=== PATIENT | female | born 1950 | race Caucasian/White ===

== ENCOUNTER 2018-02-25 11:36 | Outpatient (CLI) | payer MEDICARE, OTHER ==
--- NOTE | 2018-02-25 14:06 | ULT ---
BILATERAL LOWER EXTREMITY VENOUS DOPPLER: Date: 02/25/18 HISTORY: Pain, edema. TECHNIQUE: Real-time Santana scale and color Doppler with spectral analysis of the bilateral lower extremity venous system was performed with the linear transducer. Bilateral common femoral, femoral, proximal portion s of greater saphenous and deep femoral veins, as well as the popliteal and posterior tibial veins we re interrogated. FINDINGS: Normal flow, augmentation, and compression. IMPRESSION: No deep venous thrombosis. POS: [facility]
--- NOTE | 2018-03-10 22:08 | ULT ---
LOWER EXTREMITY ARTERIAL EVALUATION USING DOPPLER WAVE-FORM ANALYSIS AND SEGMENTAL LIMB PRESSURES: This patient study demonstrates normal waveforms in both lower extremities with an ankle-arm index of about 1.2 bilaterally and normal toe-brachial index. This will be considered a normal resting arterial study and would be inconsistent with ischemic rest pain.
== END 2018-02-25 11:37 | disposition home or self-care (01) ==
LOC: ULT 11:36
PROVIDERS: ATTEND Nurse Practitioner Family
DX: M79.604 Pain in right leg (principal); M25.471 Effusion, right ankle; G25.81 Restless legs syndrome; R53.83 Other fatigue; I10 Essential (primary) hypertension
CPT/HCPCS: 93922; 93970

== ENCOUNTER 2018-03-05 08:50 | Outpatient (CLI) | payer MEDICARE, OTHER | END 2018-03-05 08:51 | disposition home or self-care (01) | LOC: BICULT 08:50 | PROVIDERS: ATTEND Nurse Practitioner Family | DX: R74.8 Abnormal levels of other serum enzymes (principal); R53.83 Other fatigue; R16.0 Hepatomegaly, not elsewhere classified; Z90.49 Acquired absence of other specified parts of digestive tract | CPT/HCPCS: 76705 ==

== ENCOUNTER 2018-07-13 08:25 | Day surgery (SDC) | payer MEDICARE, OTHER ==
[2018-07-08 10:39] VITALS: BMI 41.5
[2018-07-13] MEDS ORDERED: Iopamidol 370 76% 50 ML VIAL FS ONE (09:00)
[2018-07-13] MEDS ORDERED: Iopamidol 370 76% 100 ML VIAL ONE (09:00)
[2018-07-13] MEDS ORDERED: Nitroglycerin 100MG/250ML BOT 250 ML ONE (10:10)
[2018-07-13] MEDS ORDERED: Heparin 10,000 UNITS/1 ML VIAL ONE (10:11)
[2018-07-13] MEDS ORDERED: Verapamil 5 MG/2 ML VIAL ONE (12:47)
[2018-07-13] MEDS ORDERED: Midazolam HCl 2 mg/2 ml Vial ONE (12:47)
--- NOTE | 2018-07-13 17:57 | EKG ---
Test Reason : POST STENT Blood Pressure : / mmHG Vent. Rate : 054 BPM Atrial Rate : 054 BPM P-R Int : 164 ms QRS Dur : 096 ms QT Int : 422 ms P-R-T Axes : 067 021 058 degrees QTc Int : 400 ms Sinus bradycardia Nonspecific T wave abnormality Abnormal ECG No previous ECGs available Confirmed by TAYLOR CHACON ([id number]) on 07/13/2018 5:57:03 PM Referred By: MARYJANE Confirmed By:TAYLOR CHACON
== END 2018-07-13 19:50 | disposition home or self-care (01) ==
LOC: CCL 08:25
PROVIDERS: ATTEND Internal Medicine Cardiovascular Disease
PROC: 027034Z Dilation of Coronary Artery, One Artery with Drug-eluting Intraluminal Device, Percutaneous Approach (ICD-10-PCS; principal; 2018-07-13)
PROC: 4A023N7 Measurement of Cardiac Sampling and Pressure, Left Heart, Percutaneous Approach (ICD-10-PCS; 2018-07-13)
PROC: B2111ZZ Fluoroscopy of Multiple Coronary Arteries using Low Osmolar Contrast (ICD-10-PCS; 2018-07-13)
DX: I25.10 Atherosclerotic heart disease of native coronary artery without angina pectoris (principal); E78.00 Pure hypercholesterolemia, unspecified; I10 Essential (primary) hypertension; Z79.899 Other long term (current) drug therapy
CPT/HCPCS: 85347; 92928; 93005; 93454; 99152; 99153; C1769; C1874; C1887; C9600; J1644; J2250

== ENCOUNTER 2018-08-03 11:09 | Outpatient (CLI) | payer MEDICARE, OTHER ==
--- NOTE | 2018-08-03 13:58 | ULT ---
THYROID ULTRASOUND: Date: 08-03-18 Comparison: None. History: 68-year-old female with hypothyroidism and obesity. Technique: Multiplanar grayscale sonographic imaging of the thyroid gland obtained. FINDINGS: Thyroid isthmus is enlarged measuring 1.3 cm in AP dimension. Right lobe measures 5.0 x 2.5 x 2.1 cm and the left lobe measures 4.5 x 1.4 x 2.1 cm. The thyroid parenchymal diffusely is markedly heterogeneous and lobulated and essentially replaced wi th numerous nodules. No discrete/dominant nodule is identified on either side. IMPRESSION: Diffusely enlarged heterogeneous and markedly nodular thyroid gland. No discrete/dominant thyroid nod ule is appreciated. POS: [facility]
== END 2018-08-03 11:10 | disposition home or self-care (01) ==
LOC: BICULT 11:09
PROVIDERS: ATTEND Nurse Practitioner Family
DX: E03.9 Hypothyroidism, unspecified (principal); E04.9 Nontoxic goiter, unspecified
CPT/HCPCS: 76536

== ENCOUNTER 2018-08-26 08:19 | Outpatient (CLI) | payer MEDICARE, OTHER ==
--- NOTE | 2018-08-26 09:25 | BD ---
BONE DENSITOMETRY USING DEXA: Date: 08/26/18 HISTORY: Postmenopausal screening for osteoporosis. FINDINGS: Lumbar Spine: BMD (g/cm2) L1 0.960 T-Score: -0.3 Z-Score: 1.4 L2 0.963 T-Score: -0.6 Z-Score: 1.2 L3 0.797 T-Score: -2.6 Z-Score: -0.7 L4 0.849 T-Score: -1.9 Z-Score: 0.1 L1-L4 0.888 T-Score: -1.4 Z-Score: 0.4 Femoral Neck: 0.557 T-Score: -2.6 Z-Score: -1.0 Total Femur: 0.819 T-Score: -1.0 Z-Score: 0.3 IMPRESSION: Osteoporosis. POS: [facility]
== END 2018-08-26 08:20 | disposition home or self-care (01) ==
LOC: BICMAMMO 08:19
PROVIDERS: ATTEND Nurse Practitioner Family
DX: Z12.31 Encounter for screening mammogram for malignant neoplasm of breast (principal); Z78.0 Asymptomatic menopausal state; M81.0 Age-related osteoporosis without current pathological fracture
CPT/HCPCS: 77063; 77067; 77080

== ENCOUNTER 2018-09-26 08:41 | Emergency (ER) | payer MEDICARE, OTHER ==
[2018-09-26 09:41] LABS: #Eosinphils 0.1 thou/uL (0.0-0.7); #Lymphocytes 1.3 thou/uL (1.20-3.40); #Monocytes 0.3 thou/uL (0.11-0.59); %Basophils 0.2 % (0.0-1.0); %Eosinophils 2.4 % (0.0-10.0); %Lymphocytes 27.2 % (21.0-51.0); %Monocytes 6.9 % (0.0-10.0); %Neutrophils 63.3 % (42.0-75.0); Hemoglobin 13.4 g/dL (12.0-16.0); Mean Corpuscular HGB CONC 32.4 g/dL (32.0-36.0); Mean Corpuscular Hemoglobin 29.5 pg (27.0-31.0); Mean Platelet Volume 8.2 fL (7.4-10.4); Platelet Count 224 thou/uL (130-400); Red Blood Cell (RBC) Count 4.55 mill/uL (4.20-5.40); White Blood Cell (WBC) Count 4.7 thou/uL (4.8-10.8)
[2018-09-26] MEDS ORDERED: Morphine 10 MG/ML VIAL ONE (09:41)
[2018-09-26 09:44] LABS: Bilirubin Negative (Negative); Blood, Urine Negative (Negative); Clarity CLEAR (Clear); Glucose, Urine (Dipstick) Negative (Negative); Leukocyte Small (Negative); Nitrite Negative (Negative); Protein, Urine (Dipstick) Negative (Neg-Trace); Specific Gravity, Urine 1.017 (1.002-1.036); pH, Urine 5.5 (5.0-9.0)
[2018-09-26 09:46] LABS: Bacteria/HPF None Seen HPF (None Seen)
[2018-09-26 09:57] LABS: Pathc Cast-AUWi Flag 3.48 (0-2.49)
[2018-09-26 10:05] LABS: ALT (SGPT) 32 U/L (8-55); AST (SGOT) 44 U/L (5-34); Albumin 4.5 g/dL (3.4-4.8); Alkaline Phosphatase 126 U/L (40-150); Anion Gap 13 mmol/L (10-20); BUN (Urea Nitrogen) 14 mg/dL (9.8-20.1); Bilirubin, Total 1.4 mg/dL (0.2-1.2); Calc. Creatinine Clearance 0 mL/min (70-130); Calcium 10.1 mg/dL (7.8-10.44); Carbon Dioxide 27 mmol/L (23-31); Chloride 102 mmol/L (98-107); Estimated GFR-MDRD 68; Globulin 3.2 g/dL (2.4-3.5); Glucose 103 mg/dL (80-115); Lipase 24 U/L (8-78); Protein, Total 7.7 g/dL (6.0-8.3); Sodium 138 mmol/L (136-145)
[2018-09-26 10:08] LABS: Hyaline Casts/LPF NONE SEEN LPF (0-3 Hyaline); Manual Microscopic Reviewed? No Path Casts Seen
== END 2018-09-26 11:02 | disposition home or self-care (01) ==
LOC: ERS 08:41
DX: B02.9 Zoster without complications (principal); I10 Essential (primary) hypertension
CPT/HCPCS: 36415; 80053; 81003; 81015; 83690; 85025; 87086; 93005; 96372; J2270

== ENCOUNTER 2018-10-12 11:38 | Outpatient (CLI) | payer MEDICARE, OTHER ==
--- NOTE | 2018-10-12 12:00 | RAD ---
RIGHT KNEE FOUR VIEWS: History: Right knee pain. Fall. FINDINGS/IMPRESSION: No acute fracture or dislocation identified. Mild degenerative changes are present. POS: [facility]
--- NOTE | 2018-10-12 12:04 | RAD ---
RIGHT LEG TWO VIEWS: History: Fall, right leg pain. FINDINGS/IMPRESSION: There right tibia and fibula appear intact. POS: [facility]
--- NOTE | 2018-10-12 12:23 | RAD ---
RIGHT ANKLE 3 VIEWS: HISTORY: Fall, right ankle pain. FINDINGS/IMPRESSION: Soft tissue swelling present. No acute fracture or dislocation is identified. Small calcaneal spurs are present. The focal lucency in the medial talar plafond. The possibility of AVN cannot be excluded. Further e valuation with MRI is recommended. POS: [facility]
== END 2018-10-12 11:39 | disposition home or self-care (01) ==
LOC: RAD-FRANK 11:38
PROVIDERS: ATTEND Nurse Practitioner Family
DX: M79.604 Pain in right leg (principal); W19.XXXS Unspecified fall, sequela; M79.89 Other specified soft tissue disorders; M77.31 Calcaneal spur, right foot; M17.11 Unilateral primary osteoarthritis, right knee

== ENCOUNTER 2019-01-11 07:38 | Outpatient (CLI) | payer MEDICARE, OTHER ==
--- NOTE | 2019-01-11 09:49 | RAD ---
LUMBAR SPINE THREE VIEWS: HISTORY: M54.16, lumbar radiculopathy. COMPARISON: None. FINDINGS: There is a wedge compression fracture, likely chronic, at L1, with approximately 50% anterior height loss. There is a previously bridging osteophyte between T12 and L1. In the neutral position, there is 2 mm of L1/L2 retrolisthesis without significant change with extens ion or flexion. There is 2 mm of anterolisthesis of L5/S1 without significant translation with flexi on or extension. IMPRESSION: 1. Likely chronic L1 compression deformity. No significant translation with flexion or extension. 2. Advanced intraspinous narrowing throughout the lumbar spine. 3. Retrolisthesis of L1/L2 and anterolisthesis of L5/S1, fixed. POS: [facility]
--- NOTE | 2019-01-11 10:52 | MRI ---
MRI LUMBAR SPINE WITHOUT CONTRAST: INDICATIONS: Lumbar radiculopathy. Back pain. TECHNIQUE: Multiplanar, multisequential imaging of the lumbar spine obtained. FINDINGS: There is a compression deformity involving the L1 vertebra. There is central and anterior compressio n with slight retropulsion of the posterior-superior cortex of L1. There is a disk bulge at T12-L1, associated with mild retropulsion of the posterior-superior corner of L1. These changes flatten the thecal sac and abut the conus, resulting in mild central canal stenosis. No significant edema is seen within this vertebra, indicating that this is a stable compression defor mity and is not acute or subacute. The other lumbar vertebrae maintain normal height and alignment. The other disk spaces are normally maintained. At L1-L2, there is a mild diffuse disk bulge flattening the thecal sac. There is mild facet hypertro phy. No significant central canal or foraminal stenosis. At L2-L3, there is minimal disk bulge. Mild facet hypertrophy. No central canal or foraminal stenos is. At L3-L4, there is minimal disk bulge. Mild facet arthrosis. No central canal or foraminal stenosis . At L4-L5, mild disk bulge abuts and mildly flattens the thecal sac. There is moderate facet hypertro phy. Minimal central canal stenosis. Mild left foraminal narrowing due to disk bulge and facet hype rtrophy. At L5-S1, there is no significant disk bulge centrally. Moderate facet hypertrophy. No significant central canal stenosis. Mild left foraminal encroachment due to disk osteophyte complex. IMPRESSION: There is a compression deformity at L1, which appears stable, as described above. There is a disk bu lge with slight retropulsion at T12-L1, flattening the thecal sac and abutting the conus. POS: [facility]
== END 2019-01-11 07:39 | disposition home or self-care (01) ==
LOC: TBSIIMAG 07:38
PROVIDERS: ATTEND Nurse Practitioner Family
DX: M54.16 Radiculopathy, lumbar region (principal); M43.8X6 Other specified deforming dorsopathies, lumbar region; M48.8X5 Other specified spondylopathies, thoracolumbar region; M48.061 Spinal stenosis, lumbar region without neurogenic claudication; M43.16 Spondylolisthesis, lumbar region; M43.17 Spondylolisthesis, lumbosacral region
CPT/HCPCS: 72100; 72148

== ENCOUNTER 2019-03-06 10:31 | Emergency (ER) | payer MEDICARE, OTHER ==
[2019-03-06 11:13] LABS: Bacteria/HPF None Seen HPF (None Seen); Bilirubin Negative (Negative); Blood, Urine Negative (Negative); Clarity Clear (Clear); Glucose, Urine (Dipstick) Normal (Negative); Leukocyte 25 Leu/uL (Negative); Nitrite Negative (Negative); Protein, Urine (Dipstick) Negative (Neg-Trace); RBC/HPF 0-3 HPF (0-3); Squamous Epithelial 0-3 HPF (0-3); Urobilinogen Normal mg/dL (Less than 2); WBC/HPF 0-3 HPF (0-3)
[2019-03-06 11:15] LABS: #Eosinphils 0.1 thou/uL (0.0-0.7); #Lymphocytes 1.4 thou/uL (1.20-3.40); #Monocytes 0.3 thou/uL (0.11-0.59); #Neutrophils 2.9 thou/uL (1.40-6.50); %Eosinophils 2.9 % (0.0-10.0); %Lymphocytes 29.3 % (21.0-51.0); %Monocytes 6.1 % (0.0-10.0); %Neutrophils 61.8 % (42.0-75.0); Hemoglobin 13.4 g/dL (12.0-16.0); Mean Corpuscular HGB CONC 32.3 g/dL (32.0-36.0); Mean Corpuscular Hemoglobin 28.7 pg (27.0-31.0); Mean Corpuscular Volume 89.1 fL (78.0-98.0); Mean Platelet Volume 8.5 fL (7.4-10.4); Platelet Count 195 thou/uL (130-400); Red Blood Cell (RBC) Count 4.65 mill/uL (4.20-5.40); White Blood Cell (WBC) Count 4.7 thou/uL (4.8-10.8)
[2019-03-06 11:42] LABS: ALT (SGPT) 25 U/L (8-55); AST (SGOT) 32 U/L (5-34); Albumin 4.3 g/dL (3.4-4.8); Alkaline Phosphatase 115 U/L (40-150); Anion Gap 11 mmol/L (10-20); BUN (Urea Nitrogen) 19 mg/dL (9.8-20.1); Bilirubin, Total 1.1 mg/dL (0.2-1.2); Calc. Creatinine Clearance 0 mL/min (70-130); Calcium 10.1 mg/dL (7.8-10.44); Carbon Dioxide 30 mmol/L (23-31); Chloride 104 mmol/L (98-107); Estimated GFR-MDRD 86; Globulin 3.2 g/dL (2.4-3.5); Glucose 94 mg/dL (80-115); Potassium 3.9 mmol/L (3.5-5.1); Protein, Total 7.5 g/dL (6.0-8.3); Sodium 141 mmol/L (136-145)
[2019-03-06 12:05] LABS: CK (CPK) 26 U/L (29-168); Lipase 29 U/L (8-78)
[2019-03-06] MEDS ORDERED: Ondansetron PF 4 MG/2 ML Vial ONE (12:12)
[2019-03-06] MEDS ORDERED: Methocarbamol 1 GM in Sodium Chloride 0.9% 100 ML IVPB SCH (12:15)
[2019-03-06] MEDS ORDERED: Sodium Chloride 0.9% 1,000 ML IV SCH (12:15)
[2019-03-06] MEDS ORDERED: Ondansetron PF 4 MG/2 ML Vial SLOW IVP SCH (12:15)
--- NOTE | 2019-03-06 13:32 | CT ---
CT Abdomen Pelvis W Con: 03/06/2019 11:28 AM CLINICAL INFORMATION: Right upper quadrant and right lower quadrant abdominal pain that extends down the right leg COMPARISON: None. TECHNIQUE: Multiple contiguous axial images were obtained and a CT of the abdomen and pelvis with IV contrast. C oronal reformats were performed. FINDINGS: Lower Chest: within normal limits. Abdomen: Liver: within normal limits. Bile Ducts: Normal caliber. Gallbladder: Absent Pancreas: within normal limits. Spleen: within normal limits. Adrenals: within normal limits. Kidneys: within normal limits. Pelvis: Reproductive Organs: Status post hysterectomy. Ureters: within normal limits. Bladder: within normal limits. Peritoneum: No ascites or free air, no fluid collection. Bowel: Normal caliber. Scattered diverticula in the colon. Mesentery and Retroperitoneum: No enlarged mesenteric or retroperitoneal lymph nodes. Vessels: Atherosclerotic calcifications. Abdominal Wall: within normal limits. Bones: Within normal limits IMPRESSION: 1. No evidence of acute intraabdominal or pelvic abnormality. 2. Diverticulosis
[2019-03-06] MEDS ORDERED: Ketorolac Tromethamine 30 MG/ML VIAL ONE ×2 (14:38→14:43)
--- NOTE | 2019-03-06 15:04 | RAD ---
EXAM: Single view of the chest HISTORY: Right-sided abdominal pain and cough COMPARISON: None FINDINGS: Single view of the chest shows a normal sized cardiomediastinal silhouette. There is no kerry dence of consolidation, mass, or pleural effusion. The bones are unremarkable. IMPRESSION: No evidence of acute cardiopulmonary disease
[2019-03-06] MEDS ORDERED: Morphine 4 MG/ML VIAL ONE (15:39)
[2019-03-06] MEDS ORDERED: ISOVUE-370 76%-LOCM 1 ML ONE (16:20)
== END 2019-03-06 16:06 | disposition home or self-care (01) ==
LOC: ERS 10:31
DX: R10.11 Right upper quadrant pain (principal); R10.31 Right lower quadrant pain; I25.10 Atherosclerotic heart disease of native coronary artery without angina pectoris; E78.5 Hyperlipidemia, unspecified; I10 Essential (primary) hypertension; E66.9 Obesity, unspecified; E03.9 Hypothyroidism, unspecified; Z79.899 Other long term (current) drug therapy; Z79.82 Long term (current) use of aspirin
CPT/HCPCS: 36415; 71045; 74177; 80053; 81003; 81015; 82550; 83690; 84484; 85025; 93005; 96361; 96365; 96372; 96375; J0500; J1885; J2270; J2405; J2800; J3490; Q9966

== ENCOUNTER 2019-03-17 06:49 | Outpatient (CLI) | payer MEDICARE, OTHER ==
--- NOTE | 2019-03-17 07:52 | ULT ---
Exam: Right upper quadrant ultrasound: HISTORY: Right upper quadrant abdominal pain. COMPARISON: CT abdomen and pelvis on 03/06/2019. FINDINGS: Liver: Enlarged in craniocaudal dimensions measuring 18.5 cm. No focal hepatic mass is seen. Gallbladder: Not visualized compatible with patient's history of prior cholecystectomy. Common bile duct: The common duct is normal in caliber for postcholecystectomy changes and measures 0 .7 cm in diameter. Pancreas: Limited visualized portions of the pancreas demonstrate a normal sonographic appearance. Right kidney: Right kidney demonstrates a normal sonographic appearance. The right kidney measures 1 0.1 cm in length. IVC: The visualized IVC demonstrates a normal sonographic appearance. IMPRESSION: 1. Evidence of cholecystectomy. 2. Enlargement of the liver in craniocaudal dimensions with measurement of 18.5 cm.
--- NOTE | 2019-03-17 09:25 | ULT ---
SOFT TISSUE ULTRASOUND: HISTORY: Groin pain. COMPARISON: Abdomen and pelvic CTs, 03/06/2019. FINDINGS: No evidence for solid mass or abnormal fluid collection within the right groin. No evidence for an i nguinal hernia. IMPRESSION: Unremarkable right groin ultrasound. No evidence for mass or abscess or abnormal fluid collection. No evidence for a bowel-containing right inguinal hernia. POS: [facility]
== END 2019-03-17 06:50 | disposition home or self-care (01) ==
LOC: BICULT 06:49
PROVIDERS: ATTEND Nurse Practitioner Family
DX: I10 Essential (primary) hypertension (principal); M62.838 Other muscle spasm; N39.0 Urinary tract infection, site not specified; B02.29 Other postherpetic nervous system involvement; G25.81 Restless legs syndrome; M54.16 Radiculopathy, lumbar region; I35.8 Other nonrheumatic aortic valve disorders; E66.01 Morbid (severe) obesity due to excess calories; R10.31 Right lower quadrant pain; R10.11 Right upper quadrant pain
CPT/HCPCS: 76705; 76999

== ENCOUNTER 2019-06-09 11:44 | Day surgery (SDC) | payer MEDICARE, OTHER ==
[2019-06-08 16:16] VITALS: BMI 41.5
[2019-06-09 13:52] LABS: #Eosinphils 0.2 thou/uL (0.0-0.7); #Lymphocytes 1.7 thou/uL (1.20-3.40); #Monocytes 0.4 thou/uL (0.11-0.59); #Neutrophils 2.9 thou/uL (1.40-6.50); %Basophils 0.2 % (0.0-1.0); %Eosinophils 3.3 % (0.0-10.0); %Lymphocytes 32.4 % (21.0-51.0); %Monocytes 7.3 % (0.0-10.0); %Neutrophils 56.8 % (42.0-75.0); Hemoglobin 13.3 g/dL (12.0-16.0); Mean Corpuscular HGB CONC 33.3 g/dL (32.0-36.0); Mean Corpuscular Hemoglobin 29.6 pg (27.0-31.0); Mean Corpuscular Volume 88.9 fL (78.0-98.0); Mean Platelet Volume 8.2 fL (7.4-10.4); Platelet Count 204 thou/uL (130-400); RBC Distribution Width 12.5 % (11.5-14.5); Red Blood Cell (RBC) Count 4.49 mill/uL (4.20-5.40); White Blood Cell (WBC) Count 5.2 thou/uL (4.8-10.8)
[2019-06-09] MEDS ORDERED: PROPOFOL 200 MG/20 ML VIAL ONE (14:03)
[2019-06-09] MEDS ORDERED: Bupivacaine HCl 0.5%/Epinephrine 1:200,000/PF 30 ml Vial ONE (14:18)
[2019-06-09] MEDS ORDERED: CEFAZOLIN 1 GM VIAL ONE (14:27)
[2019-06-09] MEDS ORDERED: Sodium Chloride 0.9% 100 ML ONE (14:27)
[2019-06-09] MEDS ORDERED: Propofol 500 MG/50 ML VIAL ONE (16:07)
[2019-06-09] MEDS ORDERED: Dexamethasone 20 MG/5 ML VIAL ONE (16:40)
[2019-06-09] MEDS ORDERED: Lidocaine 1% (PF) 30 ML VIAL ONE (16:40)
[2019-06-09] MEDS ORDERED: Ketamine 50 MG/ML (10ML VIAL) ONE (16:45)
[2019-06-09] MEDS ORDERED: Fentanyl 100 MCG/2 ML VIAL ONE (16:45)
[2019-06-09] MEDS ORDERED: Midazolam HCl 2 mg/2 ml Vial ONE (16:45)
--- NOTE | 2019-06-09 19:13 | OP ---
DATE OF PROCEDURE: 06/09/2019 PREOPERATIVE DIAGNOSES: 1. Complex regional pain syndrome, unspecified, G56.40. 2. Chronic pain syndrome, G89.4. 3. Lumbar radiculopathy, M54.16. POSTOPERATIVE DIAGNOSES: 1. Complex regional pain syndrome, unspecified, G56.40. 2. Chronic pain syndrome, G89.4. 3. Lumbar radiculopathy, M54.16. PROCEDURES PERFORMED: 1. Spinal cord stimulator battery implant x1. 2. Spinal cord stimulator lead implant x4. ESTIMATED BLOOD LOSS: 5 mL. DESCRIPTION OF PROCEDURE: The patient was taken to the procedure room, placed prone on the procedure room table. A time-out was performed. We prepped the back with DuraPrep, and sterile drapes were applied. The T8-T9 level was visualized with fluoroscopy. We used a contralateral paramedian technique, so we can access to the epidural space of T8-T9. This was a right paramedian technique. We threaded a sheath with a lead toward the T8 foramen and able to place the sheath easily through the foramen. We then took the sheath back while keeping the lead in place. We then performed a double loop for anchoring. The neutral lateral views were taken to ensure adequate depth and positioning on the DRG. The sheath was then removed with keeping the lead intact and in place. A scalpel was used to make a skin romina at the needle sites. The needle was then removed taking care to keep the lead in place. Same procedure was performed for the left T9 foramen as well as the left L1 and L5 foramina. Once all leads were placed, we anesthetized the horizontal site in the upper buttock on the right. We made an incision with a scalpel and blunt dissected this down to Stephen fascia. We then inferiorly and superiorly dissected this to make a pocket. We used tunneling devices to make tunnels between all 4 insertion points and the battery pocket. We inserted the leads into the battery and torqued them down to connect them securely to the battery. Testing was performed, then impedances were all good. We put the battery in the pocket and made sure that the leads were not getting caught on any skin or subcu layers. We then used 2-0 Vicryl suture for a fascial layers in simple interrupted fashion. We used ho for the skin, and then we covered this with sterile, 4x4s, and Medipore tape. The patient was taken to PACU under stable condition. Job ID: [id number]
--- NOTE | 2019-06-09 19:55 | RAD ---
THORACIC SPINE SERIES, TWO VIEW: 06/09/19 INDICATION: Intraoperative imaging for pain pump placement. FINDINGS: There are magnified intraoperative fluoroscopic views for placement of pain pump device. Limited in a ssessment on the basis of the provided imaging. Correlate with intraoperative assessment. IMPRESSION: Fluoroscopic intraoperative imaging of the spine for pain pump placement. POS: [facility]
== END 2019-06-09 20:00 | disposition home or self-care (01) ==
LOC: SDC 11:44
PROVIDERS: ATTEND Specialist
PROC: 0JH70MZ Insertion of Stimulator Generator into Back Subcutaneous Tissue and Fascia, Open Approach (ICD-10-PCS; principal; 2019-06-09)
PROC: 00HU3MZ Insertion of Neurostimulator Lead into Spinal Canal, Percutaneous Approach (ICD-10-PCS; 2019-06-09)
DX: G89.4 Chronic pain syndrome (principal); M54.16 Radiculopathy, lumbar region; M54.14 Radiculopathy, thoracic region; B02.29 Other postherpetic nervous system involvement; M70.61 Trochanteric bursitis, right hip; M19.90 Unspecified osteoarthritis, unspecified site; I10 Essential (primary) hypertension; E78.00 Pure hypercholesterolemia, unspecified; E03.9 Hypothyroidism, unspecified; G25.81 Restless legs syndrome; K21.9 Gastro-esophageal reflux disease without esophagitis; G47.30 Sleep apnea, unspecified; Z79.02 Long term (current) use of antithrombotics/antiplatelets; Z79.82 Long term (current) use of aspirin; Z79.899 Other long term (current) drug therapy; Z99.89 Dependence on other enabling machines and devices
CPT/HCPCS: 63650 ×2; 63685; 72070; 76000; 85025; C1767; 36415; J0670; J0690; J1100; J2001; J2250; J2704; J3010; J3490

== ENCOUNTER 2019-06-21 12:42 | Outpatient (CLI) | payer MEDICARE, OTHER ==
--- NOTE | 2019-06-21 12:56 | RAD ---
EXAM: Chest Two Views 06/21/2019 12:51 PM HISTORY: Pneumonia COMPARISON: March 06, 2019 FINDINGS: Heart: Stable moderate cardiomegaly Pulmonary vessels: Normal. Costophrenic angles: Clear. Lungs: No acute airspace consolidation. Pneumothorax: None. Osseous structures:Stable multilevel thoracic spondylosis. There are new stimulator leads projecting within the neural foramina of the mid thoracic and lower thoracic spine suspicious for nerve root stimulators. Additional findings: None. IMPRESSION: No significant acute intrathoracic disease.
== END 2019-06-21 12:43 | disposition home or self-care (01) ==
LOC: BICRAD 12:42
PROVIDERS: ATTEND Nurse Practitioner Family
DX: J18.9 Pneumonia, unspecified organism (principal)
CPT/HCPCS: 71046

== ENCOUNTER 2020-03-30 07:57 | Outpatient (CLI) | payer MEDICARE, OTHER ==
--- NOTE | 2020-03-30 08:47 | MMO ---
Bilateral MAMMO Bilat Screen [facility]. CLINICAL HISTORY: Patient is 70 years old and is seen for screening. The patient has no family history of breast cancer. The patient has no personal history of cancer. VIEWS: The views performed were: bilateral craniocaudal with tomosynthesis; bilateral mediolateral oblique; and bilateral mediolateral oblique with tomosynthesis. FILMS COMPARED: The present examination has been compared to a prior imaging study performed at [facility] on 08/26/2018. This study has been interpreted with the assistance of computer-aided detection. MAMMOGRAM FINDINGS: The breasts are almost entirely fat. There are no suspicious masses, suspicious calcifications, or new areas of architectural distortion. IMPRESSION: THERE IS NO MAMMOGRAPHIC EVIDENCE OF MALIGNANCY. A ROUTINE FOLLOW-UP MAMMOGRAM IN 1 YEAR IS RECOMMENDED. THE RESULTS OF THIS EXAM WERE SENT TO THE PATIENT. ACR BI-RADS Category 1 - Negative MAMMOGRAPHY NOTE: 1. A negative mammogram report should not delay a biopsy if a dominant of clinically suspicious mass is present. 2. Approximately 10% to 15% of breast cancers are not detected by mammography. 3. Adenosis and dense breasts may obscure an underlying neoplasm. Reported by: SPENCER PEDRO MD Electonically Signed: [id number]
== END 2020-03-30 07:58 | disposition home or self-care (01) ==
LOC: BICMAMMO 07:57
PROVIDERS: ATTEND Nurse Practitioner Family
DX: Z12.31 Encounter for screening mammogram for malignant neoplasm of breast (principal)
CPT/HCPCS: 77063; 77067

== ENCOUNTER 2020-04-09 12:03 | Outpatient (CLI) | payer MEDICARE, OTHER ==
--- NOTE | 2020-04-09 14:00 | RAD ---
LEFT SHOULDER 3 VIEWS: HISTORY: Left shoulder pain, injury from a fall. FINDINGS: Minimal osteophytosis. Arthrosis changes of AC joint. No acute fracture or dislocation. IMPRESSION: Arthrosis and degenerative change without acute fracture or dislocation. POS: [facility]
== END 2020-04-09 12:04 | disposition home or self-care (01) ==
LOC: BICRAD 12:03
PROVIDERS: ATTEND Nurse Practitioner Family
DX: M25.512 Pain in left shoulder (principal); M19.012 Primary osteoarthritis, left shoulder

== ENCOUNTER 2020-10-05 10:16 | Outpatient (CLI) | payer MEDICARE, OTHER | END 2020-10-05 10:17 | disposition home or self-care (01) | LOC: BICRAD 10:16 | PROVIDERS: ATTEND Nurse Practitioner Family | DX: M25.511 Pain in right shoulder (principal); R60.0 Localized edema ==

== ENCOUNTER 2020-10-05 13:17 | Outpatient (CLI) | payer MEDICARE, OTHER | END 2020-10-05 13:18 | disposition home or self-care (01) | LOC: ULT 13:17 | PROVIDERS: ATTEND Nurse Practitioner Family | DX: G89.4 Chronic pain syndrome (principal); R60.0 Localized edema; G25.81 Restless legs syndrome; I35.8 Other nonrheumatic aortic valve disorders; Z95.5 Presence of coronary angioplasty implant and graft; M25.511 Pain in right shoulder | CPT/HCPCS: 93923; 93970 ==

== ENCOUNTER 2020-11-20 14:50 | Outpatient (CLI) | payer MEDICARE, OTHER | END 2020-11-20 14:51 | disposition home or self-care (01) | LOC: BICMAMMO 14:50 | PROVIDERS: ATTEND Nurse Practitioner Family | DX: Z13.820 Encounter for screening for osteoporosis (principal); Z78.0 Asymptomatic menopausal state; M81.0 Age-related osteoporosis without current pathological fracture | CPT/HCPCS: 77080 ==

== ENCOUNTER 2021-04-29 10:28 | Outpatient (CLI) | payer MEDICARE, OTHER | END 2021-04-29 10:29 | disposition home or self-care (01) | LOC: BICCT 10:28 | PROVIDERS: ATTEND Nurse Practitioner Family | DX: R10.2 Pelvic and perineal pain (principal); R10.31 Right lower quadrant pain; I10 Essential (primary) hypertension; E03.9 Hypothyroidism, unspecified; E66.01 Morbid (severe) obesity due to excess calories; E78.5 Hyperlipidemia, unspecified; B02.29 Other postherpetic nervous system involvement; G25.81 Restless legs syndrome; G89.4 Chronic pain syndrome; I35.8 Other nonrheumatic aortic valve disorders; K21.00 Gastro-esophageal reflux disease with esophagitis, without bleeding; K76.0 Fatty (change of) liver, not elsewhere classified; M19.90 Unspecified osteoarthritis, unspecified site; F33.1 Major depressive disorder, recurrent, moderate; K57.30 Diverticulosis of large intestine without perforation or abscess without bleeding; R89.9 Unspecified abnormal finding in specimens from other organs, systems and tissues | CPT/HCPCS: 74177 ==

== ENCOUNTER 2021-06-12 12:47 | Emergency (ER) | payer MEDICARE, OTHER ==
[2021-06-12 14:01] LABS: Bacteria/HPF None Seen HPF (None Seen); Bilirubin Negative (Negative); Blood, Urine Negative (Negative); Clarity Clear (Clear); Glucose, Urine (Dipstick) Normal (Negative); Ketone, Urine Negative (Negative); Leukocyte 75 Leu/uL (Negative); Nitrite Negative (Negative); Protein, Urine (Dipstick) 20 mg/dL (Neg-Trace); RBC/HPF 0-3 HPF (0-3); Specific Gravity, Urine 1.023 (1.002-1.036); Squamous Epithelial 0-3 HPF (0-3); Urobilinogen 3 mg/dL (Less than 2); pH, Urine 7.5 (5.0-9.0)
[2021-06-12 14:27] LABS: Hemoglobin 13.9 g/dL (12.0-16.0); Mean Corpuscular HGB CONC 33.5 g/dL (32.0-36.0); Mean Corpuscular Hemoglobin 30.1 pg (27.0-31.0); Mean Corpuscular Volume 89.7 fL (78.0-98.0); Mean Platelet Volume 8.3 fL (7.4-10.4); Platelet Count 200 thou/uL (130-400); RBC Distribution Width 12.6 % (11.5-14.5); Red Blood Cell (RBC) Count 4.62 mill/uL (4.20-5.40); White Blood Cell (WBC) Count 4.2 thou/uL (4.8-10.8)
[2021-06-12] MEDS ORDERED: Acetaminophen 325 MG TAB ONE ×2 (14:36→15:06)
[2021-06-12] MEDS ORDERED: Ketorolac Tromethamine 30 MG/ML VIAL ONE (14:36)
[2021-06-12 14:49] LABS: Band 1 % (5-11); Lymphocytes 35 % (21-51); MDiff Complete? YES; Monocytes 7 % (0-10); Neutrophil 57 % (42-75); Platelet Morphology Comment Appears Adequate; RBC Morphology Normal
[2021-06-12 15:03] LABS: ALT (SGPT) 40 U/L (8-55); AST (SGOT) 49 U/L (5-34); Albumin 4.3 g/dL (3.4-4.8); Alkaline Phosphatase 129 U/L (40-110); Anion Gap 12 mmol/L (10-20); BUN (Urea Nitrogen) 15 mg/dL (9.8-20.1); Bilirubin, Total 1.4 mg/dL (0.2-1.2); Calc. Creatinine Clearance 0 mL/min (70-130); Calcium 9.7 mg/dL (7.8-10.44); Carbon Dioxide 30 mmol/L (23-31); Chloride 102 mmol/L (98-107); Globulin 3.2 g/dL (2.4-3.5); Glucose 104 mg/dL (80-115); Lipase 25 U/L (8-78); Potassium 4.1 mmol/L (3.5-5.1); Protein, Total 7.5 g/dL (5.8-8.1); Sodium 140 mmol/L (136-145)
== END 2021-06-12 17:50 | disposition home or self-care (01) ==
LOC: ERS 12:47
DX: R10.31 Right lower quadrant pain (principal); R10.32 Left lower quadrant pain; I25.10 Atherosclerotic heart disease of native coronary artery without angina pectoris; E78.5 Hyperlipidemia, unspecified; E03.9 Hypothyroidism, unspecified; E66.9 Obesity, unspecified; Z79.82 Long term (current) use of aspirin; Z79.899 Other long term (current) drug therapy
CPT/HCPCS: 36415; 74177; 80053; 81003; 81015; 83690; 85025; 87086; 96374; J1885

== ENCOUNTER 2021-09-05 12:34 | Emergency (ER) | payer MEDICARE, OTHER ==
[2021-09-05] MEDS ORDERED: Ketorolac Tromethamine 30 MG/ML VIAL ONE (14:00)
[2021-09-05] MEDS ORDERED: Morphine 4 MG/ML VIAL ONE ×2 (14:48→16:15)
[2021-09-05] MEDS ORDERED: Ondansetron PF 4 MG/2 ML Vial ONE (14:48)
== END 2021-09-05 16:48 | disposition home or self-care (01) ==
LOC: ERS 12:34
DX: S70.11XA Contusion of right thigh, initial encounter (principal); S80.02XA Contusion of left knee, initial encounter; M54.6 Pain in thoracic spine; I10 Essential (primary) hypertension; E78.5 Hyperlipidemia, unspecified; E03.9 Hypothyroidism, unspecified; I25.10 Atherosclerotic heart disease of native coronary artery without angina pectoris; E66.9 Obesity, unspecified; W18.30XA Fall on same level, unspecified, initial encounter; Z68.45 Body mass index [BMI] 70 or greater, adult; Z95.5 Presence of coronary angioplasty implant and graft; Z79.82 Long term (current) use of aspirin; Z79.899 Other long term (current) drug therapy
CPT/HCPCS: 71045; 96372; 96374; 96375; J1885; J2270; J2405

== ENCOUNTER 2022-03-25 10:51 | Outpatient (CLI) | payer MEDICARE, OTHER | END 2022-03-25 10:52 | disposition home or self-care (01) | LOC: BICMAMMO 10:51 | PROVIDERS: ATTEND Nurse Practitioner Family | DX: Z12.31 Encounter for screening mammogram for malignant neoplasm of breast (principal) | CPT/HCPCS: 77063; 77067 ==

== ENCOUNTER 2022-11-06 08:33 | Outpatient (CLI) | payer MEDICARE, OTHER | END 2022-11-06 08:34 | disposition home or self-care (01) | LOC: NM 08:33 | PROVIDERS: ATTEND Family Medicine | DX: M48.56XA Collapsed vertebra, not elsewhere classified, lumbar region, initial encounter for fracture (principal); N32.89 Other specified disorders of bladder; R94.8 Abnormal results of function studies of other organs and systems | CPT/HCPCS: 78306; A9503 ==

== ENCOUNTER 2022-11-27 06:12 | Observation (INO) | payer MEDICARE, OTHER ==
[2022-11-26 13:02] VITALS: BMI 44.3
[2022-11-27] MEDS ORDERED: Lidocaine 2% PF 5 ML VIAL ONE (06:39)
[2022-11-27] MEDS ORDERED: Bupivacaine HCl 0.5%/Epinephrine 1:200,000/PF 30 ml Vial ONE (06:39)
[2022-11-27] MEDS ORDERED: fentaNYL 50 mcg/mL 1 mL Vial ONE (06:45)
[2022-11-27] MEDS ORDERED: Propofol 500 MG/50 ML VIAL ONE (06:45)
[2022-11-27 07:57] LABS: #Eosinphils 0.2 thou/uL (0.0-0.7); #Lymphocytes 1.4 thou/uL (1.20-3.40); #Monocytes 0.4 thou/uL (0.11-0.59); #Neutrophils 2.8 thou/uL (1.40-6.50); %Basophils 0.5 % (0.0-1.0); %Eosinophils 3.5 % (0.0-10.0); %Lymphocytes 28.9 % (21.0-51.0); %Monocytes 8.8 % (0.0-10.0); %Neutrophils 58.3 % (42.0-75.0); Hemoglobin 11.4 g/dL (12.0-16.0); Mean Corpuscular HGB CONC 32.1 g/dL (32.0-36.0); Mean Corpuscular Hemoglobin 27.9 pg (27.0-31.0); Mean Corpuscular Volume 86.8 fl (78.0-98.0); Mean Platelet Volume 8.4 fL (7.4-10.4); Platelet Count 271 10x3/uL (130-400); RBC Distribution Width 14.5 % (11.5-14.5); Red Blood Cell (RBC) Count 4.07 mill/uL (4.20-5.40); White Blood Cell (WBC) Count 4.8 10x3/uL (4.8-10.8)
[2022-11-27] MEDS ORDERED: Acetaminophen 325 MG TAB PO PRN ×2 (08:04→08:42)
[2022-11-27] MEDS ORDERED: Bisacodyl 10 MG SUPP PR PRN (08:04)
[2022-11-27] MEDS ORDERED: Ondansetron PF 4 MG/2 ML Vial IVP PRN (08:04)
[2022-11-27] MEDS ORDERED: Ondansetron ODT 4 MG TAB PO PRN (08:04)
[2022-11-27] MEDS ORDERED: Senokot S 8.6-50 MG TAB PO PRN (08:04)
[2022-11-27] MEDS ORDERED: Bisacodyl 5 MG TAB PO PRN (08:04)
[2022-11-27] MEDS ORDERED: Loperamide HCl 2 MG CAP PO PRN (08:04)
[2022-11-27] MEDS ORDERED: CEFAZOLIN 2 GM VIAL ONE (08:11)
[2022-11-27] MEDS ORDERED: Sodium Chloride 0.9% 100 ML ONE (08:11)
[2022-11-27 08:16] LABS: Anion Gap 14 mmol/L (10-20); BUN (Urea Nitrogen) 35 mg/dL (9.8-20.1); Calc. Creatinine Clearance 133 mL/min (70-130); Calcium 9.7 mg/dL (7.8-10.44); Carbon Dioxide 25 mmol/L (23-31); Chloride 101 mmol/L (98-107); Estimated GFR 79; Glucose 102 mg/dL (80-115); Potassium 4.2 mmol/L (3.5-5.1); Sodium 136 mmol/L (136-145)
[2022-11-27] MEDS ORDERED: Ondansetron PF 4 MG/2 ML Vial ONE (08:26)
[2022-11-27] MEDS ORDERED: PROPOFOL 200 MG/20 ML VIAL ONE (08:26)
[2022-11-27] MEDS ORDERED: Rocuronium Bromide 10 MG/ML (10ML VIAL) ONE (08:26)
[2022-11-27] MEDS ORDERED: Dexamethasone 20 MG/5 ML VIAL ONE (08:26)
[2022-11-27] MEDS ORDERED: Lidocaine 1% PF 5 ML VIAL ONE (08:26)
[2022-11-27] MEDS ORDERED: PHENYLEPHRINE-NS 100 MCG/ML 10 ML SYRINGE ONE (08:26)
[2022-11-27] MEDS ORDERED: SUGAMMADEX SODIUM 200 MG/2 ML VIAL ONE (09:53)
[2022-11-27] MEDS ORDERED: Phenol 118 ML BOT PO PRN (11:52)
[2022-11-27] MEDS ORDERED: GABAPENTIN PO SCH (12:00)
[2022-11-27] MEDS ORDERED: Acetaminophen/Codeine 30-300mg Tablet PO SCH (12:30)
[2022-11-27] MEDS: Famotidine 20 MG TAB PO SCH ×2 (13:34→20:52)
[2022-11-27] MEDS: Gabapentin 300 MG CAP PO SCH ×2 (13:45→20:50)
[2022-11-27] MEDS ORDERED: Acetaminophen/Codeine 30-300mg Tablet PO PRN (13:50)
[2022-11-27] MEDS ORDERED: Cyclobenzaprine 10 MG TAB PO PRN (14:07)
[2022-11-27] MEDS ORDERED: Cyclobenzaprine 10 MG TAB PO SCH ×2 (14:15→21:00)
[2022-11-27] MEDS ORDERED: Morphine 4 MG/ML VIAL SLOW IVP PRN (16:22)
[2022-11-27] MEDS ORDERED: Morphine 4 MG/ML VIAL SLOW IVP SCH (16:30)
[2022-11-27] MEDS: Carvedilol 3.125 MG TAB PO SCH (20:51)
[2022-11-27] MEDS: Amlodipine 10 MG TAB PO SCH (20:52)
[2022-11-27] MEDS: hydrALAZINE 25 MG TAB PO SCH (20:52)
[2022-11-27] MEDS ORDERED: Simvastatin 20 MG TAB PO SCH (21:00)
[2022-11-27] MEDS ORDERED: Amlodipine 5 MG TAB PO SCH (21:00)
[2022-11-27] MEDS ORDERED: rOPINIRole HCl 0.5 MG TAB PO SCH ×2 (21:00)
[2022-11-27] MEDS ORDERED: Atorvastatin Calcium 10 MG TAB PO SCH (21:00)
[2022-11-27] MEDS ORDERED: Clopidogrel Bisulfate 75 MG TAB PO SCH (21:00)
[2022-11-27] MEDS ORDERED: Carvedilol 3.125 MG TAB PO SCH (21:00)
[2022-11-27] MEDS ORDERED: Lisinopril 20 MG TAB PO SCH (21:00)
[2022-11-27] MEDS: Senokot S 8.6-50 MG TAB PO SCH (21:05)
[2022-11-28] MEDS: Gabapentin 300 MG CAP PO SCH (05:10)
[2022-11-28] MEDS: Amlodipine 10 MG TAB PO SCH (06:51)
[2022-11-28] MEDS ORDERED: Potassium Chloride 20 MEQ TAB PO SCH (08:00)
[2022-11-28] MEDS: Senokot S 8.6-50 MG TAB PO SCH (08:14)
[2022-11-28] MEDS: Famotidine 20 MG TAB PO SCH (08:15)
[2022-11-28] MEDS: hydrALAZINE 25 MG TAB PO SCH (08:16)
[2022-11-28] MEDS: Carvedilol 3.125 MG TAB PO SCH (08:16)
[2022-11-28] MEDS ORDERED: Polyethylene Glycol 3350 17 GM Packet PO SCH (09:00)
[2022-11-28] MEDS ORDERED: Calcium Carbonate 600 MG TAB PO SCH (09:00)
[2022-11-28] MEDS ORDERED: Aspirin 81 mg Enteric Coated Tablet PO SCH (09:00)
[2022-11-28] MEDS ORDERED: Levothyroxine Sodium 125 MCG TAB PO SCH ×2 (09:00)
[2022-11-28] MEDS ORDERED: Non-Formulary Item 1 EACH (Polyethylene Glycol 3350 [Miralax] 119 GM Bottle) PO SCH (09:00)
[2022-11-28] MEDS ORDERED: DULoxetine 60 MG CAP PO SCH (10:15)
[2022-11-28 17:55] VITALS: BP 121/57; TEMP 98.4
[2022-11-29] MEDS ORDERED: DULoxetine 60 MG CAP PO SCH (09:00)
== END 2022-11-28 15:00 ==
LOC: SDC 06:12 → SJJU 11:01
PROVIDERS: ADMIT Specialist; ATTEND Specialist
PROC: XNU0356 Supplement Lumbar Vertebra with Mechanically Expandable (Paired) Synthetic Substitute, Percutaneous Approach, New Technology Group 6 (ICD-10-PCS; principal; 2022-11-27)
DX: M80.08XA Age-related osteoporosis with current pathological fracture, vertebra(e), initial encounter for fracture (principal); S32.010A Wedge compression fracture of first lumbar vertebra, initial encounter for closed fracture; S32.030A Wedge compression fracture of third lumbar vertebra, initial encounter for closed fracture; M15.9 Polyosteoarthritis, unspecified; E03.9 Hypothyroidism, unspecified; G25.81 Restless legs syndrome; I25.10 Atherosclerotic heart disease of native coronary artery without angina pectoris; B02.29 Other postherpetic nervous system involvement; M54.14 Radiculopathy, thoracic region; M54.16 Radiculopathy, lumbar region; G89.4 Chronic pain syndrome; E78.5 Hyperlipidemia, unspecified; G47.33 Obstructive sleep apnea (adult) (pediatric); E66.9 Obesity, unspecified; Z68.41 Body mass index [BMI] 40.0-44.9, adult; Z79.02 Long term (current) use of antithrombotics/antiplatelets; Z79.82 Long term (current) use of aspirin; Z79.890 Hormone replacement therapy; Z79.899 Other long term (current) drug therapy; Z88.5 Allergy status to narcotic agent; Z95.5 Presence of coronary angioplasty implant and graft; W18.39XA Other fall on same level, initial encounter
CPT/HCPCS: 22514; 22515; 72100; 80048; 85025; 97535; C1062; J3010; 96374; 96375; G0378; J1100; J2001; J2270; J2405; J2704; J3490